=== PATIENT | male | born 1985 | race Caucasian/White ===

== ENCOUNTER → 2017-11-09 | Emergency (ER) | payer OTHER ==
[~2017-11-09] VITALS: Ht 170.2 cm; Wt 79.4 kg
[~2017-11-09] MED LIST: AMPICILLIN TRI500 MG PO; ANTIVERT25 M1 PO; CARBAMIDE15 ML OT
== END | disposition home or self-care (01) ==
LOC: ER 08:27
DX: S92.515A Nondisplaced fracture of proximal phalanx of left lesser toe(s), initial encounter for closed fracture (principal); S90.222A Contusion of left lesser toe(s) with damage to nail, initial encounter; W18.49XA Other slipping, tripping and stumbling without falling, initial encounter; Y93.89 Activity, other specified; Y92.89 Other specified places as the place of occurrence of the external cause; Y99.8 Other external cause status

== ENCOUNTER 2023-07-06 09:32 | Emergency (ER) | payer OTHER ==
[~2023-07-06] VITALS: Ht 167.6 cm; Wt 78.9 kg
== END 2023-07-06 10:43 | disposition home or self-care (01) ==
LOC: ER 09:32
DX: H81.10 Benign paroxysmal vertigo, unspecified ear (principal)